=== PATIENT | male | born 1965 | race Hispanic/Latino ===

== ENCOUNTER 2020-08-21 07:55 | Emergency (ER) | payer BC, SELFPAY | END 2020-08-21 08:43 | disposition home or self-care (01) | LOC: ERS 07:55 | DX: S93.402A Sprain of unspecified ligament of left ankle, initial encounter (principal); X50.1XXA Overexertion from prolonged static or awkward postures, initial encounter ==

== ENCOUNTER 2022-06-17 07:41 | Emergency (ER) | payer BC ==
[2022-06-17] MEDS ORDERED: Morphine 4 MG/ML VIAL ONE (12:30)
== END 2022-06-17 13:01 | disposition home or self-care (01) ==
LOC: ERS 07:41
DX: M25.561 Pain in right knee (principal); M25.562 Pain in left knee
CPT/HCPCS: 96372; J2270

== ENCOUNTER 2022-06-24 08:08 | Emergency (ER) | payer BC | END 2022-06-24 11:18 | disposition home or self-care (01) | LOC: ERS 08:08 | DX: M10.9 Gout, unspecified (principal) ==